=== PATIENT | female | born 1945 ===

== ENCOUNTER 2019-06-17 07:00 | Day surgery (SDC) | payer OTHER ==
[~2019-06-17] VITALS: Ht 162.6 cm; Wt 77.1 kg
[~2019-06-17 07:00] MED LIST: ARIMIDEX PO; LATANOPROST2.5 ML OP; SYNTHROID50 MCG PO
[2019-06-17] MEDS ORDERED: ANASTROZOLE1 MG PO (07:55)
[2019-06-18] MEDS ORDERED: ULTRACET PO (07:55)
[2019-06-18] MEDS ORDERED: INTESTINEX680 M1 PO (07:55)
== END 2019-06-18 08:00 | disposition home or self-care (01) ==
LOC: CIR.AMB 07:00 → MEDI 07:17 → O/R 07:17 → RECOVERY 07:17 → EDSTATUS 11:30 → RECOVERY 11:30 → O/R 13:33 → MEDI 13:33 → RECOVERY 17:00 → CIR.AMB 06-18 08:00 → MEDI 06-18 08:50
DX: D12.8 Benign neoplasm of rectum (principal)

== ENCOUNTER 2021-03-13 07:35 | Day surgery (SDC) | payer OTHER ==
[~2021-03-13 07:35] MED LIST changes: +ANASTROZOLE1 MG PO; +INTESTINEX680 M1 PO; +ULTRACET PO
== END 2021-03-13 12:40 | disposition home or self-care (01) ==
LOC: AMB-ENDOS 07:35
PROVIDERS: ATTEND Surgery
DX: D12.3 Benign neoplasm of transverse colon (principal); Z20.822 Contact with and (suspected) exposure to COVID-19